=== PATIENT | male | born 1980 | race Caucasian/White ===

== ENCOUNTER 2018-09-20 19:40 | Emergency (ER) | payer BC, OTHER ==
[2018-09-20 19:47] VITALS: BP 169/100
== END 2018-09-20 20:43 | disposition left against medical advice (07) ==
LOC: ED 19:40
DX: K08.89 Other specified disorders of teeth and supporting structures (principal); Z53.21 Procedure and treatment not carried out due to patient leaving prior to being seen by health care provider
CPT/HCPCS: 99281

== ENCOUNTER 2018-10-02 04:21 | Emergency (ER) | payer BC ==
[2018-10-02] MEDS ORDERED: Clindamycin CAP* 150 MG PO ONE (04:35)
--- NOTE | 2018-10-02 04:44 | ED ---
Complex/Multi-Sys Presentation - HPI Summary HPI Summary: This patient is a 38 year old M presenting to [facility] with a chief complaint of pain from right lower wisdom tooth which has been present since last week. He was prescribed penicillin which alleviated the pain. However the penicillin ran out two days ago, and pt has experienced severe pain the nights of 09/30/18 and . Pt has been taking Ibuprofen every 5 hours and Tylenol intermittently. On triage, pain is rated 9/10, lying down is noted to aggravate Sx. - History Of Current Complaint Chief Complaint: EDDentalPain Time Seen by Provider: 10/02/18 04:27 Hx Obtained From: Patient Onset/Duration: Sudden Onset, Lasting Days, Still Present, Worse Since - 09/30/18 Timing: Constant, Days Severity Currently: Severe Severity Initially: Severe Location: Pain At: - Harbinger Tooth, right lower Aggravating Factor(s): Lying down Alleviating Factor(s): Penicillin Associated Signs And Symptoms: Positive: Other - dental pain - Allergies/Home Medications Allergies/Adverse Reactions: Allergies Allergy/AdvReac Type Severity Reaction Status Date / Time No Known Allergies Allergy Verified 10/02/18 04:36 Home Medications: Home Medications NK [No Home Medications Reported] 10/02/18 [History Confirmed 10/02/18] PMH/Surg Hx/FS Hx/Imm Hx Cardiovascular History: Denies: Hx Hypertension Neurological History: Denies: Hx Headaches - Immunization History Date of Tetanus Vaccine: 06/26/13 Infectious Disease History: No Infectious Disease History: Denies: Traveled Outside the [place] in Last 30 Days - Family History Known Family History: Negative: Cardiac Disease, Hypertension - Social History Alcohol Use: None Substance Use Type: Reports: None Smoking Status (MU): Heavy Every Day Tobacco Smoker Review of Systems Negative: Fever Positive: Dental Pain All Other Systems Reviewed And Are Negative: Yes Physical Exam - Summary Physical Exam Summary: VITAL SIGNS: Reviewed. GENERAL: Patient is a well-developed and nourished male who is lying comfortable in the stretcher. Patient is not in any acute respiratory distress. HEAD AND FACE: No signs of trauma. No ecchymosis, hematomas or skull depressions. No sinus tenderness. EYES: PERRLA, EOMI x 2, No injected conjunctiva, no nystagmus. EARS: Hearing grossly intact. Ear canals and tympanic membranes are within normal limits. MOUTH: Oropharynx within normal limits. Tenderness and mild swelling in gum by the last right lower molar NECK: Supple, trachea is midline, no adenopathy, no JVD, no carotid bruit, no c- spine tenderness, neck with full ROM CHEST: Symmetric, no tenderness at palpation LUNGS: Clear to auscultation bilaterally. No wheezing or crackles. CVS: Regular rate and rhythm, S1 and S2 present, no murmurs or gallops appreciated. ABDOMEN: Soft, non-tender. No signs of distention. No rebound no guarding, and no masses palpated. Bowel sounds are normal. EXTREMITIES: FROM in all major joints, no edema, no cyanosis or clubbing. NEURO: Alert and oriented x 3. No acute neurological deficits. Speech is normal and follows commands. SKIN: Dry and warm Triage Information Reviewed: Yes Vital Signs On Initial Exam: Initial Vitals Temp Pulse Resp BP Pulse Ox 97.4 F 65 18 150/95 100 10/02/18 04:23 10/02/18 04:23 10/02/18 04:23 10/02/18 04:23 10/02/18 04:23 Vital Signs Reviewed: Yes Diagnostics - Vital Signs Vital Signs Temp Pulse Resp BP Pulse Ox 10/02/18 04:23 97.4 F 65 18 150/95 100 - Laboratory Lab Statement: Any lab studies that have been ordered have been reviewed, and results considered in the medical decision making process. Complex Multi-Symp Course/Dx Course Of Treatment: This patient is a 38 year old M presenting to [facility] with a chief complaint of pain from right lower wisdom tooth which has been present since last week. He was prescribed penicillin which alleviated the pain. However the penicillin ran out two days ago, and pt has experienced severe pain the nights of 09/30/18 and 10/01/18. Pt has been taking Ibuprofen every 5 hours and Tylenol intermittently. On triage, pain is rated 9/10, lying down is noted to aggravate Sx. Physical exam was normal other than Tenderness and mild swelling in gum by the last right lower molar. During the ED course, pt was given Cleocin Cap 300 mg PO. He was prescribed clindamycin and Percocet and given referral to DDS. Pt was agreeable to be discharged. - Diagnoses Provider Diagnoses: Gingivitis Discharge - Sign-Out/Discharge Documenting (check all that apply): Patient Departure - Discharge Patient Received Moderate/Deep Sedation with Procedure: No - Discharge Plan Condition: Stable Disposition: HOME Prescriptions: Clindamycin Cap(NF) [Clindamycin Cap 300 mg Cap(NF)] 300 mg PO Q6H #30 cap oxyCODONE/Acetamin 5/325 MG* [Percocet 5/325 TAB*] 1 tab PO Q6H PRN #10 tab MDD 4 PRN Reason: Pain (Dental) Patient Education Materials: Gingivitis (ED) Referrals: EFFIE BENNETT [Doctor of Dental Surgery] - 2 Days Additional Instructions: Follow up with dentist withing 2 days. Please return to ED immediately for worsening or concerning symptoms. - Attestation Statements Document Initiated by Scribe: Yes Documenting Scribe: ARIANNA SUTTON Provider For Whom Scribe is Documenting (Include Credential): AUGUST KELLY MD Scribe Attestation: IARIANNA, scribed for AUGUST KELLY MD on 10/02/18 at 0554. Status of Scribe Document: Ready
[2018-10-02 05:11] VITALS: BP 148/90
== END 2018-10-02 05:10 | disposition home or self-care (01) ==
LOC: ED 04:21
DX: K05.10 Chronic gingivitis, plaque induced (principal); F17.200 Nicotine dependence, unspecified, uncomplicated
CPT/HCPCS: 99282; A9270-GY